=== PATIENT | male | born 1990 | race Caucasian/White ===

== ENCOUNTER 2022-04-15 08:24 | Inpatient (IN) | payer MEDICAID, OTHER ==
[~2022-04-15] VITALS: Ht 175.3 cm; Wt 69.1 kg
[2022-04-15 09:12] LABS: BASOPHILS % (AUTO) 0.6 % (0.0-2.0); EOSINOPHILS % (AUTO) 0.2 % (1.0-6.0); HEMATOCRIT 46.7 % (41-53); HEMOGLOBIN 15.8 g/dL (13.5-17.5); LYMPHOCYTES # (AUTO) 1.4 K/uL (1.0-4.8); LYMPHOCYTES % (AUTO) 13.7 % (22.0-44.0); MEAN CORPUSCULAR HGB CONC 33.9 G/dL (31.0-37.0); MEAN CORPUSCULAR VOLUME 92 fL (80-100); MONOCYTES # (AUTO) 0.6 K/uL (0.1-1.0); MONOCYTES % (AUTO) 6.4 % (2.0-9.0); NEUTROPHILS % (AUTO) 79.1 % (40.0-70.0); PLATELET COUNT (AUTO) 308 K/uL (150-450); RED BLOOD CELL COUNT(AUTO) 5.11 MIL/uL (4.50-5.90); RED CELL DISTRIBUTION WIDTH 13.2 % (11.5-14.5)
[2022-04-15 09:24] LABS: ANION GAP 12 mmol/L (8-16); CALCIUM, TOTAL 10.2 mg/dL (8.8-10.5); CARBON DIOXIDE 27 mmol/L (22-29); CHLORIDE 104 mmol/L (98-107); CREATININE 0.87 mg/dL (0.60-1.30); GLOMERULAR FILTR. RATE CALC > 60 mL/min (>60); GLUCOSE,RANDOM 104 mg/dL (70-110); POTASSIUM 3.7 mmol/L (3.5-5.1); SODIUM SERUM 143 mmol/L (136-145); UREA NITROGEN, BLOOD 14 mg/dL (7-18)
[2022-04-15 09:29] LABS: COVID AG,FIA SOURCE NASOPHARYNGEAL
[2022-04-15 09:40] LABS: ALANINE AMINOTRANSFERASE 27 U/L (12-78); ALBUMIN 4.9 g/dL (3.4-5.0); ALKALINE PHOSPHATASE 57 U/L (46-116); ASPARTATE AMINOTRANSFERASE 24 U/L (15-37); BILIRUBIN,TOTAL 0.9 mg/dL (0.1-1.0); THYROID STIMULATING HORMONE 1.73 uIU/mL (0.36-3.74); TOTAL PROTEIN, SERUM 8.2 g/dL (6.4-8.2)
[2022-04-15 09:59] LABS: APPEARANCE,URINE CLEAR (CLEAR); BILIRUBIN,URINE NEGATIVE (NEGATIVE); GLUCOSE, URINE (UA) NEGATIVE (NEGATIVE); KETONES,URINE =>150 mg/dL (NEGATIVE); LEUKOCYTE ESTERASE ,URINE NEGATIVE (NEGATIVE); NITRATE,URINE NEGATIVE (NEGATIVE); OCCULT BLOOD,URINE NEGATIVE (NEGATIVE); PROTEIN,URINE 30-70 mg/dL (NEGATIVE); SPECIFIC GRAVITIY, URINE 1.028 (1.003-1.030); UROBILINOGEN,URINE <=1.0 mg/dL (<=1.0)
[2022-04-15 10:06] LABS: AMPHET/METH SCREEN,URINE NEGATIVE (NEGATIVE); BARBITURATE SCREEN, URINE NEGATIVE (NEGATIVE); BENZODIAZEPINES SCREEN,URINE NEGATIVE (NEGATIVE); CANNABINOID SCREEN,URINE POSITIVE (NEGATIVE); COCAINE SCREEN,URINE NEGATIVE (NEGATIVE); METHADONE SCREEN, URINE NEGATIVE (NEGATIVE); OPIATE SCREEN,URINE NEGATIVE (NEGATIVE); PHENCYCLIDINE SCREEN,URINE NEGATIVE (NEGATIVE)
[2022-04-15] MEDS ORDERED: DiphenhydrAMINE HCL 50 MG CAPSULE PO ONE (12:15)
[2022-04-15] MEDS ORDERED: LORazepam 2 MG TABLET PO ONE (12:15)
[2022-04-15] MEDS ORDERED: HALOPERIDOL 5 MG TABLET PO ONE (12:15)
[2022-04-15] MEDS ORDERED: ZOLPIDEM TARTRATE 10 MG TABLET PO PRN (13:00)
[2022-04-15 16:34] VITALS: BP 134/82
[2022-04-15] MEDS ORDERED: PNEUMOCOCCAL VACCINE POLYVALENT 0.5 ML VIAL [PPSV23] IM. ONE (18:00)
[2022-04-15] MEDS ORDERED: INFLUENZA VIRUS VACCINE QVS 2022-23 (6MO+)/PF 60 MCG/0.5 ML SYRINGE IM. ONE (18:00)
[2022-04-16] MEDS ORDERED: PETROLATUM,WHITE 28 GM JELLY TP PRN (05:30)
[2022-04-16] MEDS ORDERED: ALBUTEROL SULFATE HFA 90 MCG/PUFF 8 GM INHALER IH PRN (05:30)
[2022-04-16] MEDS ORDERED: CloNIDine HCL 0.1 MG TABLET PO PRN (05:30)
[2022-04-16] MEDS ORDERED: LOPERAMIDE HCL 2 MG CAPSULE PO PRN (05:30)
[2022-04-16] MEDS ORDERED: BENZOCAINE/MENTHOL LOZENGE PO PRN (05:30)
[2022-04-16] MEDS ORDERED: IBUPROFEN 600 MG TABLET PO PRN (05:30)
[2022-04-16] MEDS ORDERED: ACETAMINOPHEN 325 MG TABLET PO PRN (05:30)
[2022-04-16] MEDS ORDERED: DOCUSATE SODIUM 100 MG CAPSULE PO PRN (05:30)
[2022-04-16] MEDS ORDERED: BACITRACIN 28 GM OINTMENT TP PRN (05:30)
[2022-04-16] MEDS ORDERED: MAG HYDROX/AL HYDROX/SIMETH ES 30 ML SUSPENSION UDCUP PO PRN (05:30)
[2022-04-16] MEDS ORDERED: OMEPRAZOLE 20 MG CAPSULE PO PRN (05:30)
[2022-04-16] MEDS ORDERED: ONDANSETRON HCL 4 MG TABLET PO PRN (05:30)
[2022-04-16] MEDS ORDERED: MAGNESIUM HYDROXIDE SUSPENSION 30 ML UDCUP PO PRN (05:30)
[2022-04-16] MEDS: LORazepam 2 MG TABLET PO PRN (07:45)
[2022-04-16] MEDS: HALOPERIDOL 5 MG TABLET PO PRN (07:45)
[2022-04-16 08:31] VITALS: BP 143/91
[2022-04-16] MEDS: SERTRALINE HCL 50 MG TABLET PO SCH (13:18)
[2022-04-16 16:24] VITALS: BP 138/88
[2022-04-16 20:23] VITALS: BP 134/84
[2022-04-17] MEDS: SERTRALINE HCL 50 MG TABLET PO SCH (08:32)
[2022-04-17] MEDS: LORazepam 2 MG TABLET PO PRN (08:41)
[2022-04-17 09:34] VITALS: BP 140/52
[2022-04-17] MEDS: HALOPERIDOL 5 MG TABLET PO PRN (15:39)
[2022-04-17 16:20] VITALS: BP 109/67
[2022-04-17] MEDS ORDERED: NICOTINE 21 MG/24 HOUR PATCH TD PRN (17:15)
[2022-04-17 20:11] VITALS: BP 114/70
[2022-04-17] MEDS: RisperiDONE 1 MG TABLET PO SCH (21:00)
[2022-04-18] MEDS: LORazepam 2 MG TABLET PO PRN ×2 (04:10→10:11)
[2022-04-18] MEDS: SERTRALINE HCL 50 MG TABLET PO SCH (07:52)
[2022-04-18] MEDS: RisperiDONE 1 MG TABLET PO SCH ×2 (07:52→21:02)
[2022-04-18 10:07] VITALS: BP 131/88
[2022-04-18] MEDS: HALOPERIDOL 5 MG TABLET PO PRN (15:22)
[2022-04-18 16:23] VITALS: BP 147/69
[2022-04-19] MEDS: LORazepam 2 MG TABLET PO PRN ×2 (06:21→10:21)
[2022-04-19 08:00] VITALS: BP 106/60
[2022-04-19] MEDS: RisperiDONE 1 MG TABLET PO SCH ×2 (09:11→20:27)
[2022-04-19] MEDS: SERTRALINE HCL 50 MG TABLET PO SCH (09:11)
[2022-04-19] MEDS: HALOPERIDOL 5 MG TABLET PO PRN (10:21)
[2022-04-20] MEDS: SERTRALINE HCL 50 MG TABLET PO SCH (07:56)
[2022-04-20] MEDS: RisperiDONE 1 MG TABLET PO SCH (07:56)
[2022-04-20] MEDS: LORazepam 2 MG TABLET PO PRN (07:57)
[2022-04-20 08:30] VITALS: BP 123/69
[2022-04-20] MEDS ORDERED: RISP1TAB48 PO (14:31)
[2022-04-20] MEDS ORDERED: SERT-158 PO (14:31)
== END 2022-04-20 16:00 | disposition home or self-care (01) | DRG 750 ==
LOC: EMS 08:28 → 3EC 15:40 → UNDOADMIN 15:40
PROVIDERS: ADMIT Psychiatry & Neurology Psychiatry; ATTEND Psychiatry & Neurology Psychiatry
DX: F25.0 Schizoaffective disorder, bipolar type (principal); R45.851 Suicidal ideations; F41.9 Anxiety disorder, unspecified; F12.90 Cannabis use, unspecified, uncomplicated; G47.00 Insomnia, unspecified; Z20.822 Contact with and (suspected) exposure to COVID-19; R07.89 Other chest pain; K59.00 Constipation, unspecified; K62.5 Hemorrhage of anus and rectum; Z79.899 Other long term (current) drug therapy; Z85.048 Personal history of other malignant neoplasm of rectum, rectosigmoid junction, and anus
CPT/HCPCS: 80053; 80307; 81003; 84443; 84484; 85025; 93005; 99285; G0480